=== PATIENT | female | born 1990 | race African-American/Black ===

== ENCOUNTER 2018-12-12 19:11 | Day surgery (SDC) | payer SELFPAY ==
[2018-12-12 19:43] VITALS: BP 115/65; TEMP 98.5; BMI 38.0
--- NOTE | 2018-12-12 22:15 | PRG ---
DATE OF SERVICE: 12/12/2018 PRIMARY OB: In [place]. CHIEF COMPLAINT: Uterine contractions. HISTORY OF PRESENT ILLNESS: The patient is a 28-year-old G4, P3 female from [facility], who presented to Labor and Delivery today after coming in a town for preparations of the of her uncle. Prior to returning to [place], she wanted to make sure she was not in labor. The patient reports she is having uterine contractions today that has since improved with taking a warm bath at home. The patient denies any hip problems, knee problems, or muscle weakness. She denies any bleeding or leakage of fluid or cramps or discharge. She denies any urinary urgency. She reports that she has frequency, but it is reported as her baseline with pregnancies. The patient denies any fever, fall, headache, chest pain, shortness of breath, nausea, vomiting, diarrhea, constipation, or any new rashes. PAST MEDICAL HISTORY: Heart murmur that she reports has not interfered with or activity. PAST SURGICAL HISTORY: Prior x3. ALLERGIES: PENICILLIN AND IODINE. MEDICATIONS: vitamins. LABORATORY DATA: OB labs unavailable. REVIEW OF SYSTEMS: Per HPI. PHYSICAL EXAMINATION: VITAL SIGNS: Blood pressure 115/65, heart rate of 86, respiratory rate of 16, saturating 96% on room air, and temperature 98.5. GENERAL: She appears to be in no acute distress. She is alert, oriented, cooperative, and pleasant to interact with. HEAD: Normocephalic and atraumatic. LUNGS: Clear to auscultation bilaterally. HEART: Regular rate and rhythm. ABDOMEN: Gravid, soft, nontender. EXTREMITIES: Nontender and nonedematous. GENITOURINARY: Cervical exam per nursing staff is closed and thick. heart tracing shows a baseline in the 120s with moderate long-term variability, positive 15/15 accelerations, no decelerations, no contraction pattern clearly visible on the monitor. It appears that she has had maybe 1 or 2. ASSESSMENT AND PLAN: The patient is a 28-year-old female, G4, P3, with an intrauterine at 37 weeks and 2 days, who is having some irritability and uterine contractions, but no evidence of labor. The patient feels comfortable and self reports the contractions are resolving. She is being discharged to home. Fetus has a reactive NST in category 1 tracing. She is given term labor precautions. I have also counseled her to take a 15-minute break in the middle of her trip back to [place] and allow for a walk to allow for circulation in her legs to maintain itself and decrease chances of DVT. The patient expressed understanding. Job ID: [id number] MTDD
== END 2018-12-12 20:15 | disposition home or self-care (01) ==
LOC: L&D/OP 19:11
PROVIDERS: ATTEND Obstetrics & Gynecology
DX: O47.1 False labor at or after 37 completed weeks of gestation (principal); Z3A.37 37 weeks gestation of pregnancy; Z79.899 Other long term (current) drug therapy; Z88.0 Allergy status to penicillin; Z91.041 Radiographic dye allergy status
CPT/HCPCS: 99283